=== PATIENT | female | born 1990 | race African-American/Black ===

== ENCOUNTER 2016-11-18 17:54 | Emergency (ER) | payer SELFPAY ==
[~2016-11-18] VITALS: Ht 157.5 cm; Wt 59.0 kg
[2016-11-18] MEDS ORDERED: FLUT9.9S NS (18:14)
[2016-11-18] MEDS ORDERED: ALBU90AE IH (18:14)
[2016-11-18] MEDS ORDERED: ALBU18HF2 IH (18:15)
[2016-11-18] MEDS ORDERED: SODIUM CHLORIDE 0.9% 500 ML IV ONE (19:16)
[2016-11-18 19:22] LABS: CLARITY URINE CLEAR (CLEAR); COLOR URINE YELLOW (YELLOW); GLUCOSE URINE NEGATIVE (NEGATIVE); KETONES URINE NEGATIVE (NEGATIVE); LEUKOCYTE ESTERASE URINE NEGATIVE (NEGATIVE); NITRITE URINE NEGATIVE (NEGATIVE); OCCULT BLOOD URINE NEGATIVE (NEGATIVE); PROTEIN URINE NEGATIVE (NEGATIVE); SPECIFIC GRAVITY URINE 1.006 (1.005-1.030); UROBILINOGEN URINE 0.2 E.U./dL (0.2-1.0)
[2016-11-18] MEDS ORDERED: ACETAMINOPHEN 650MG/20.3ML UDC PO ONE (19:30)
[2016-11-18 19:41] LABS: BASOPHILS % 0.3 % (0.0-2.0); CHLORIDE 102 mEq/L (98-107); EOSINOPHILS % 0.1 % (0.0-5.0); HEMATOCRIT. 39.3 % (36.0-48.0); HEMOGLOBIN. 13.7 g/dL (12.0-16.0); LYMPHOCYTES % 7.8 % (20.0-50.0); MEAN CORPUSCULAR HEMOGLOBIN 30.6 pg (28.0-32.0); MEAN CORPUSCULAR VOLUME 87.9 fL (81.0-99.0); MEAN PLATELET VOLUME 10.1 fl (7.4-10.4); MONOCYTES % 9.1 % (2.0-8.0); NEUTROPHILS % 82.7 % (40.0-76.0); PLATELET 156 x1000/uL (130-400); RED BLOOD CELL COUNT 4.48 mill/uL (4.2-5.4); RED CELL DISTRIBUTION WIDTH 12.5 % (11.6-14.6)
[2016-11-18 19:43] LABS: HCG SCREEN NEGATIVE
[2016-11-18 19:46] LABS: CARBON DIOXIDE 25 mEq/L (21-32)
[2016-11-18 22:15] VITALS: BP 133/80
== END 2016-11-18 22:15 | disposition home or self-care (01) ==
LOC: ER 21:53
DX: J06.9 Acute upper respiratory infection, unspecified (principal); D72.829 Elevated white blood cell count, unspecified; K21.9 Gastro-esophageal reflux disease without esophagitis; J45.909 Unspecified asthma, uncomplicated
CPT/HCPCS: 36415; 80048; 81003; 81025; 84703; 85025; 87804; 96360; 99284; J7040; Z7610